=== PATIENT | female | born 1965 | race Caucasian/White ===

== ENCOUNTER 2019-03-09 07:17 | Day surgery (SDC) | payer OTHER ==
[~2019-03-09] VITALS: Ht 157.5 cm; Wt 67.1 kg
[2019-03-09] MEDS ORDERED: MIDAZOLAM 2 MG/2 ML VIAL ONE ×2 (08:17→08:51)
[2019-03-09] MEDS ORDERED: LIDOCAINE 2% 100 MG/5 ML UJET TP ONE (08:17)
[2019-03-09] MEDS ORDERED: fentaNYL 0.05 MG/ML VIAL ONE (08:17)
== END 2019-03-09 09:45 | disposition home or self-care (01) ==
LOC: MOR 07:17 → MTU 07:26 → MOR 09:45
PROVIDERS: ATTEND Internal Medicine Gastroenterology
DX: Z12.11 Encounter for screening for malignant neoplasm of colon (principal); K21.9 Gastro-esophageal reflux disease without esophagitis; J05.10 Acute epiglottitis without obstruction; E66.3 Overweight
CPT/HCPCS: 43235; 45378; J2250; J3010; J7030

== ENCOUNTER 2021-12-28 13:52 | Emergency (ER) | payer OTHER ==
[~2021-12-28] VITALS: Ht 157.5 cm; Wt 70.0 kg
[2021-12-28 14:05] VITALS: BP 125/106
--- NOTE | 2021-12-28 14:09 | NUR ---
PT AMB TO ER BED 10
--- NOTE | 2021-12-28 14:15 | NUR ---
56 Y/O FEMALE BIB SELF C/O COUGH, BODY PAIN X 1 WEEK. PT STATES SHE HAS HAD HEADACHES AND BODY ACHES. PT STATES SHE TOOK OTC MEDICATION WITH NO SYMPTOMATIC RELIEF. PT DENIES ANYONE ELSE IN HOUSEHOLD SICK. PT DENIES SOB, N/V/D. PT ALERT AND ORIENTED X4. LUNG SOUNDS CTA. BED LOCKED IN LOWEST POSITION. BED RAIL X1. PMH: ANXIETY MEDS: DENIES ALLERGIES: EGGS
[2021-12-28] MEDS ORDERED: NAPR-54 PO (16:04)
[2021-12-28] MEDS ORDERED: PROM118S5 PO (16:04)
[2021-12-28] MEDS ORDERED: PRED20TA5 PO (16:04)
--- NOTE | 2021-12-28 16:14 | NUR ---
Patient discharged with v/s stable. Written and verbal after care instructions given and explained. Patient alert, oriented and verbalized understanding of instructions. Ambulatory with steady gait. All questions addressed prior to discharge. ID band removed. Patient advised to follow up with PMD. Rx of Naprosyn, prednisone,promethazine-dm given. Patient educated on indication of medication including possible reaction and side effects. Opportunity to ask questions provided and answered.
[2021-12-28 16:17] VITALS: BP 122/99
== END 2021-12-28 16:14 | disposition home or self-care (01) ==
LOC: MED 13:52
DX: B34.9 Viral infection, unspecified (principal); Z91.012 Allergy to eggs; Z20.822 Contact with and (suspected) exposure to COVID-19
CPT/HCPCS: 71045; 99284

== ENCOUNTER 2023-09-02 18:52 | Emergency (ER) | payer OTHER ==
[~2023-09-02] VITALS: Ht 157.5 cm; Wt 72.6 kg
[~2023-09-02 18:52] MED LIST: NAPR-54 PO; PRED20TA5 PO; PROM118S5 PO
[2023-09-02 19:09] VITALS: BP 139/88; PULSE 76; RESP 19; TEMP 98.7; O2SAT 98
[2023-09-02 19:54] VITALS: BP 139/88; PULSE 76; RESP 19; TEMP 98.7; O2SAT 98
== END 2023-09-02 19:54 | disposition home or self-care (01) ==
LOC: MED 18:52
DX: R43.0 Anosmia (principal); Z79.899 Other long term (current) drug therapy
CPT/HCPCS: 99281